=== PATIENT | male | born 1975 | race Caucasian/White ===

== ENCOUNTER 2025-05-13 10:18 | Inpatient (IN) ==
--- NOTE | 2025-05-13 11:01 | Emergency Department Note ---
Impression & Plan Alcoholic intoxication, Transaminitis ED Provider Note HISTORY OF PRESENT ILLNESS: Patient is a 49-year-old male presenting requesting alcohol detox. Patient reports he drinks 25, 12 ounce beers a day for the last 30 years. He reports that the longest time he was sober was for 49 days 5 years ago while he was in senior living. He reports that he was given oral medications for the first 3 days during his incarceration. He reports that he drinks 2 beers every morning before even gets up to brush his teeth. He states that he gets very tremulous and shaky if he does not have alcohol regularly. He denies any known seizure history with alcohol cessation. He denies any visual hallucinations at this time. He did drink 8 beers in the parking lot. ROS: as above PHYSICAL EXAM: Constitutional: Patient appears in no acute distress. Slurring his speech and clinically intoxicated. HENT: Head: Normocephalic and atraumatic. Eyes: EOMI, PERRL Mouth/Throat: Mucous membranes moist. Neck: Trachea midline. Neck supple. Cardiovascular: RRR, No murmurs, rubs or gallops. Intact distal pulses. Pulmonary/Chest: No respiratory distress. Breath sounds clear and equal bilaterally. No wheezes or rales. Abdominal: Abdomen soft, no tenderness, rebound or guarding. Musculoskeletal: No edema, tenderness or deformity noted. Skin: Warm and dry. No rash, erythema, pallor or cyanosis Psychiatric: Appropriate mood and affect for situation. Neurological: Alert and keenly responsive. CN II-XII grossly intact, moving all extremities equally and fully. MDM: - Vitals signs showed hypertension - History obtained via patient. History as above. - Chronic conditions affecting care: Alcohol abuse - Differential diagnoses include, but are not limited to: Alcohol intoxication; drug intoxication; dehydration; electrolyte abnormality - Order placed for continuous cardiac monitoring. At this time, monitor showed rate of 82 bpm with normal sinus rhythm, per my interpretation. - External medical records reviewed. - EKG image interpreted by myself showed normal sinus rhythm. Rate 78 bpm. QT 366. No acute ischemic changes - Laboratory workup interpreted by myself showed normal WBC; stable electrolytes; elevated glucose (158) with normal anion gap; transaminitis (AST 190; ALT 165); normal lipase; elevated alcohol (264.8) - Alcohol withdrawal severity score was only 2 on arrival to the ER, but patient is clinically intoxicated. He has never had outpatient sobriety before. Concerned about the patient's alcohol intake and need for medical alcohol detox. - Discussion was had with rehabilitation case coordinator about patient's case and need for admission - Hospitalist, Dr. Manning, consulted for admission - [facility] ASSESSMENT AND PLAN: Diagnosis: Alcohol intoxication; alcohol detox; transaminitis Plan: Admit Past Med/Surg History Problem List (Updated 05/13/25 @ 13:08 by Gloria Vega MD) Transaminitis (Acute) Alcoholic intoxication (Acute) Social History Smoking Status: Current every day smoker Tobacco Type: Smokeless Tobacco (Dip or Chew) Hx Substance Use: Yes (all different- clean 7 yrs) Preferred Language: Greenlandic Feels Safe at Home: Yes Results & Data (ED) Vital Signs Vital Signs - 24 hr 05/13/25 10:23 05/13/25 10:38 05/13/25 10:38 Temperature 36.8 C Temperature Source Temporal Artery Scan Pulse Rate 95 H Pulse Rate [Finger] 83 Pulse Rhythm [Finger] Regular Pulse Strength [Finger] Normal Respiratory Rate 18 18 Respiratory Effort / Characteristics Spontaneous Non-Labored Respiratory Depth Normal Normal Respiratory Pattern Regular Regular Blood Pressure 166/107 H Blood Pressure [Left Arm] 162/110 H Blood Pressure Mean 126 Blood Pressure Mean [Left Arm] 127 Pulse Oximetry 97 97 Oxygen Delivery Method Room Air Room Air Room Air Sepsis Recent Fever Within 48 Hours No Sepsis New/Unexplained Change in Mental Status No Sepsis Action Taken by Nursing No Action Required 05/13/25 10:38 05/13/25 11:14 Temperature Temperature Source Pulse Rate 82 Pulse Rate [Finger] Pulse Rhythm [Finger] Pulse Strength [Finger] Respiratory Rate Respiratory Effort / Characteristics Respiratory Depth Respiratory Pattern Blood Pressure Blood Pressure [Left Arm] Blood Pressure Mean Blood Pressure Mean [Left Arm] Pulse Oximetry 98 Oxygen Delivery Method Room Air Sepsis Recent Fever Within 48 Hours Sepsis New/Unexplained Change in Mental Status Sepsis Action Taken by Nursing Laboratory Data 05/13/25 10:52 05/13/25 10:52 Lab Results 05/13/25 05/13/25 Range/Units 10:52 11:26 WBC 6.15 (4.8-10.8) K/ul RBC 4.43 L (4.70-6.10) M/uL Hgb 14.4 (14.0-18.0) g/dl Hct 41.1 L (42.0-52.0) % MCV 92.8 (80.0-100.0) fL MCH 32.5 (25.0-34.0) pg MCHC 35.0 (32.0-36.0) g/dL RDW Std Deviation 46.9 H (36.4-46.3) fL RDW Coeff of María 13.7 (11.5-14.5) % Plt Count 161 (130-400) K/uL MPV 8.9 L (9.4-12.4) fL Immature Gran % (Auto) 1.1 % Neut % (Auto) 47.0 % Lymph % (Auto) 34.8 % Stearns % (Auto) 13.8 % Eos % (Auto) 1.5 % Baso % (Auto) 1.8 % Neut # (Auto) 2.89 (1.40-6.50) K/uL Lymph # (Auto) 2.14 (1.20-3.40) K/uL Stearns # (Auto) 0.85 H (0.11-0.59) K/uL Eos # (Auto) 0.09 (0.00-0.50) K/uL Baso # (Auto) 0.11 (0.00-0.20) K/uL Immature Gran # (Auto) 0.07 (0.01-0.20) K/uL Sodium 137 (136-145) mmol/L Potassium 3.6 (3.5-5.1) mmol/L Chloride 103 (98-107) mmol/L Carbon Dioxide 25 (21-32) mmol/L Anion Gap 9 (3-11) BUN 6 (6-23) mg/dl Creatinine 0.81 (0.6-1.4) mg/dl Est Cr Clr Drug Dosing 134.7 ml/min eGFR 109.44 BUN/Creatinine Ratio 7.4 L (10-20) Glucose 158 H (70-99(Fasting)) mg/dl Calcium 9.0 (8.6-10.3) mg/dl Magnesium 2.1 (1.7-2.4) mg/dl Total Bilirubin 0.9 (0.2-1.0) mg/dl AST 190 H (13-39) U/L ALT 165 H (7-52) U/L Alkaline Phosphatase 46 (34-104) U/L Total Protein 7.7 (6.0-8.3) gm/dl Albumin 4.9 (3.4-5.0) gm/dl Globulin 2.8 (2.5-4.0) gm/dl Albumin/Globulin Ratio 1.8 (0.9-2) Lipase 43 (11-82) U/L Ethyl Alcohol mg/dL 264.8 H (<10.0) mg/dl Imaging Data Radiologist's Impression: Chest X-Ray 05/13/25 10:30 XR chest 1V portable CLINICAL HISTORY: Chest pain, nonspecific COMPARISON STUDY: None FINDINGS: Heart size and pulmonary vasculature are normal. No consolidation or pleural effusion. No pneumothorax. There is a 3 cm oval increased density finding overlying the upper body of the right scapula. IMPRESSION: 1. No acute findings. 2. Finding overlying the right scapula could represent low-grade chondroid lesion at the scapula or overlying soft tissue calcification. ACT 112: Negative or not required by law. Electronically signed by: Jeremy Phillip M.D. 05/13/2025 11:03 AM Discharge Plan Visit Data Chief Complaint: Detox Request Stated Complaint: ALCOHOL PROBLEM,SHAKY,ANXIETY ED Provider: Gloria Vega Discharge Problem: Alcoholic intoxication, Transaminitis Condition: Fair Forms Stand Alone Forms: [facility], Suicide Prevention Resources Referrals Referrals: PCP,NO [Primary Care Provider] -
--- NOTE | 2025-05-13 11:04 | XRay Report ---
XR chest 1V portable CLINICAL HISTORY: Chest pain, nonspecific COMPARISON STUDY: None FINDINGS: Heart size and pulmonary vasculature are normal. No consolidation or pleural effusion. No p neumothorax. There is a 3 cm oval increased density finding overlying the upper body of the right sca pula. IMPRESSION: 1. No acute findings. 2. Finding overlying the right scapula could represent low-grade chondroid lesion at the scapula or o verlying soft tissue calcification. ACT 112: Negative or not required by law. Electronically signed by: Jeremy Phillip M.D. 05/13/2025 11:03 AM
[2025-05-13 11:20] LABS: Basophils # (auto) 0.11 K/uL (0.00-0.20); Basophils % (auto) 1.8 %; Eosinophils # (auto) 0.09 K/uL (0.00-0.50); Eosinophils % (auto) 1.5 %; Hematocrit (blood only) 41.1 % (42.0-52.0); Hemoglobin 14.4 g/dl (14.0-18.0); Immature Granulocytes # (auto) 0.07 K/uL (0.01-0.20); Immature Granulocytes % (auto) 1.1 %; Lymphocytes # (auto) 2.14 K/uL (1.20-3.40); Lymphocytes % (auto) 34.8 %; Mean Corpuscular Hemoglobin 32.5 pg (25.0-34.0); Mean Corpuscular Volume 92.8 fL (80.0-100.0); Mean Platelet Volume 8.9 fL (9.4-12.4); Monocytes # (auto) 0.85 K/uL (0.11-0.59); Monocytes % (auto) 13.8 %; Neutrophils # (auto) 2.89 K/uL (1.40-6.50); Platelet Count 161 K/uL (130-400); RDW Coefficient of Variation 13.7 % (11.5-14.5); RDW Standard Deviation 46.9 fL (36.4-46.3); Red Blood Count 4.43 M/uL (4.70-6.10); White Blood Count 6.15 K/ul (4.8-10.8)
[2025-05-13 11:46] LABS: Albumin Globulin Ratio 1.8 (0.9-2); Albumin Level 4.9 gm/dl (3.4-5.0); BUN Creatinine Ratio 7.4 (10-20); Bilirubin,Total 0.9 mg/dl (0.2-1.0); Creatinine Clr Calc Pharmacy 134.7 ml/min; Globulin 2.8 gm/dl (2.5-4.0); Magnesium 2.1 mg/dl (1.7-2.4); Potassium 3.6 mmol/L (3.5-5.1); Total Protein 7.7 gm/dl (6.0-8.3)
--- NOTE | 2025-05-13 14:49 | History & Physical Report ---
Date of Service May 13, 2025 Assessment & Plan (1) Alcoholic intoxication: Plan: West is a 49-year-old male with past history of polysubstance use with recreational drug use and remission for 7 years but with ongoing daily alcohol use of 25+ drinks per day last drink 8 drinks morning of admission who presents resting detox. He is high risk for severe withdrawal and had 1 past episode of withdrawal symptoms treated while in long term, unclear what medication regimen he was treated with. Alcohol abuse, risk of severe alcohol withdrawal Drinking 25 beers per day. No alcohol free periods in the last 5 years History of prior withdrawal without seizures/DTs PAWSS screening score 5 - Slight alcohol induced transaminitis without hyperbilirubinemia, evidence of cirrhosis, or history of synthetic dysfunction. Alcohol initially to 264.8 on arrival to the ER. On reassessment for admission patient is beginning to be shaky and tremulous, rising heart rate in the 8090s previously in the 60s. ETOH downtrending not yet normal No dyspnea/airway obstruction. No evidence of Wernicke's. No encephalopathy on reassessment. Given that he has very daily use, showing withdrawal symptoms from an ETOH delta from 264 --> 176 and endorses shakes/tremors symptoms requiring him to take his morning drinks, and increased PAWS score he is high risk of severe withdrawal. Started on phenobarbital Phenobarbital Symptom-Triggered Management: -Meeker body weight: 84 kg. Patient is 6 feet 3 inches. Actual body weight 98.8 kg. Phenobarbital total load 12 mg/kg given as 40% dose followed by 30% after 3 hours, followed by 30% after 3 hours. Total load= 1008mg - First dose 403mg, to be given as IV infusion.due to worsening symptoms on reevaluation. - Second dose 260mg IM (302mg rounded down to nearest 65mg IM) - Third 260mg IM (302mg rounded down to nearest 65mg IM) Phenobarbital 65 mg IM/PO every hour as needed up to 6 maximum doses after completion of load. Note if all doses are given this is cumulatively at approximately 20 mg/kg total dose soft stop, and still significantly below 30 mg/kg maximum dosing. Phenobarbital as needed dosing. RASS parameters added. May give PRN dose for RASS >0, hold doses and notify provider if RASS <-2. Goal 0 to -1. Reassess RASS every 15 minutes until goal -1 to 0 achieved. Then reassess every 30 minutes x 2, every hour x 2, every 2 hours x 2 q., then every 4 hours - No evidence of Wernicke's. Moderate-High risk of nutritional deficiency. Will treat with thiamine 500 mg x 1, then 100 mg 3 times daily x 1 day, then 100 mg daily. Continue folic acid If doing well afterload and initial PRNs complete transition to oral taper as follows: Phenobarbital 60 mg twice daily x 2 days, then phenobarbital p.o. 30 mg twice daily x 2 days, then phenobarbital 15 mg twice daily x 2 days, then phenobarbital 7.5 mg p.o. twice daily for 1 day, then stop taper. If symptoms have completely resolved at any point discontinue taper. Hold if SBP less than 90, DBP less than 50, heart rate less than 50, RR less than 10, or RASS less than -2 Case management consulted to help provide cessation resources and referrals as patient is interested in programs to help maintain sobriety. On subsequent evaluation patient has improvement in heart rate, reports he feels better and does not feel anxious or tremulous like he did earlier and like he normally would without withdrawal. Breathing comfortably.. RASS of 0. Transaminitis Mild, suspect acute alcohol use hepatitis CMP trended Liver ultrasound pending No clinical signs or symptoms of cholecystitis. Bilirubin is not elevated. Lipid panel, A1c pending. Patient reports he had a history of fatty liver disease separate from his alcohol use, but does not sure of details of this and was discussed several years ago GERD Continue PPI DVT prophylaxis: SCDs Diet: Regular Disposition: PCU CODE STATUS: Full code. Jayne Burrell is girlfriend [phone] would be his surrogate DM. (2) Alcohol withdrawal: (3) Transaminitis: History of Present Illness Primary Care Provider: NO PCP Sarthak is a 49-year-old male who presents with a 25+ year intake per day requesting detoxification. 25beer per day. Last time he went without etoh for more than 3-4 days was 5 years ago when in [facility]. He reports that he did have withdrawal symptoms at that time but was treated with a oral medication, he does not recall the name of this. He did not have any seizures or hallucinations at the time Drinks beer on the way to work as he feels poorly in the morning "If I drink too much I feel terrible, if I dont drink I feel terrible. I used to be in control, now it's in control" Would like to detox and stay soberIs interesting in counseling and medcally assisted sobriety ([facility]) although notes this worked poorly when he last used is several years ago Reassessment he feels he is starting to feel very tremulous, sweaty, and a li ttle bit anxious which is normally how he feels in the morning when waking up until he takes a few drinks prior to going to work. Denies history of bleeding/DVT PAWSS Screening: Endorses intoxication in the previous month. +Withdrawal while in long term in the past. No seizures, no DTs. Interested in formal rehabilitation treatment, previously had only been sober during a period of incarceration. Episodes of blackouts in the past. Denies combining alcohol with any other substances in the preceding 90 days. No history of seizures, no DTs Had an episode of jaundice from acute alcohol approximately 5 years ago which resolved History of fatty liver. Denies cirrhosis. Denies leg swelling/abdominal swelling. Denies easy bruising or bleeding Last drink was ~10am this morning. Had approximately 8 drinks this morning history of asthma and GERD. Denies other medication history Reports "if you name it I tried it, but have not used anything in 7 years ". he denies IV drug use however subsequently clarifies that he did not IV drugs about 8 times total in the past does not like needles and use drugs orally/nasally instead. Thinks he was hepatitis negative at 1 point. Denies any recreational drug use in the last 7 years. He had an episode where he [place] then stopped using illicit drugs at that time however continued to use alcohol Medical History: Reviewed Medications: Reviewed Surgical History: Reviewed Family history: Reviewed Allergies: Reviewed Social History: Alcohol use, drug use is no CODE STATUS: Full. aJyne Burrell is girlfriend [phone] would be his surrogate DM. Allergies Allergy/AdvReac Type Severity Reaction Status Date / Time No Known Allergies Allergy Unverified 05/13/25 15:16 Home Medications Medication Instructions Recorded Confirmed Type pantoprazole 40 mg tablet,delayed 40 mg PO DAILY PRN Heartburn 05/13/25 05/13/25 History release Past Med/Surg History Problem List Alcohol withdrawal Transaminitis (Acute) Alcoholic intoxication (Acute) Social History Smoking Status: Current every day smoker Tobacco Type: Smokeless Tobacco (Dip or Chew) Hx Alcohol Use: Yes Alcohol type: beer Hx Substance Use: Yes (all different- clean 7 yrs) Preferred Language: Bengali Communication Ability: Effective Single Pointed Operator Required: No Beliefs That Will Affect Care: None Current Living Situation: Significant Other Feels Safe at Home: Yes Safety Concerns: Feels Safe At This Time Assistive Devices: None Physical Exam Physical Exam: General: A&Ox3. Skin warm, slightly moist. Speech fluent. No confabulation. HEENT: Atraumatic, normocephalic. Vision and hearing grossly intact. EOM intact without nystagmus. Pulm: CTAB A&P. -wheezes, -rales, -rhonchi. Symmetrical chest rise. No increased work of breathing. No respiratory distress. Cardiac: RRR, -mrg. Pulse initially 6070s. On bedside recheck 85-96 while resting. Radial pulses intact and symmetrical. Abdominal: Nontender, nondistended, soft. BS present. Remedies: Warm and dry. Lower extremities with resting tremor. Sensation to soft touch intact in hands and feet without deficit or asymmetry. Security Threat Analyst strength, hip flexion, ankle dorsiflexion/plantarflexion 5/5 Results & Data Results & Data Vital Signs (Past 12 Hours) Vital Signs Temp Pulse Pulse Resp BP BP Pulse Ox 05/13/25 13:10 80 16 142/93 H 98 05/13/25 11:14 82 05/13/25 10:38 98 05/13/25 10:38 83 18 162/110 H 97 05/13/25 10:38 05/13/25 10:23 36.8 C 95 H 18 166/107 H 97 O2 Del Method 05/13/25 13:10 Room Air 05/13/25 11:14 05/13/25 10:38 Room Air 05/13/25 10:38 Room Air 05/13/25 10:38 Room Air 05/13/25 10:23 Room Air PG Care Time/CCT Total # of Minutes Spent Total Time Spent with Patient: Total time spent is greater than 50% in coordination of care (as documented) at patient's floor/unit and/or counseling patient: Coding Level of Care Code 66888 INT INP/OBS CARE MIN Diagnoses Alcoholic intoxication F10.929 Alcohol withdrawal F10.939 Transaminitis R74.01
[2025-05-13] MEDS ORDERED: PHENobarbital sodium 65 MG/ML VIAL IV STA (15:11)
[2025-05-13] MEDS: THIAMINE HCL 500 MG in SODIUM CHLORIDE 0.9% 50 ML IV ONE (16:00)
--- NOTE | 2025-05-13 17:19 | Ultrasound Report ---
EXAMINATION: US abdomen right upper quadrant COMPARISON: None HISTORY: Abnormal LFTs TECHNIQUE: The right upper quadrant of the abdomen was scanned in standard fashion with specialized ultrasound transducers using both burnett scale and limited color Doppler techniques. Findings: Liver: The liver demonstrates diffusely increased echogenicity with poor acoustic penetration. No evidence of a focal hepatic mass or intrahepatic biliary ductal dilatation. The main portal vein is patent with antegrade flow. The liver measures 16.8 cm. Gallbladder: The gallbladder is well distended and of normal morphology. There is no wall thickening, pericholecystic fluid, sonographic Mccord's sign nor evidence for cholelithiasis. Bile Ducts: Both the intra- and extrahepatic biliary system are of normal callber. The common bile duct measures 3.6 mm in diameter. Pancreas: Visualized portions of the head and body of the pancreas are unremarkable. Right kidney: Normal echotexture, without mass or hydronephrosis. Right kidney craniocaudal dimension: 10.7 Fluid: No evidence of ascites or pleural effusions. Impression: 1. Increased echogenicity of the liver suggesting hepatic steatosis Electronically signed by Db Moran 05-13-2025 5:19 PM
[2025-05-13] MEDS: PHENobarbital sodium 130 MG/ML VIAL IM SCH (19:52)
[2025-05-13] MEDS ORDERED: PHENobarbital sodium 65 MG/ML VIAL IM PRN ×2 (22:00→22:15)
[2025-05-13] MEDS: THIAMINE HCL 100 MG in SYRINGE 9 ML IV SCH (22:03)
[2025-05-14 06:17] LABS: Basophils # (auto) 0.09 K/uL (0.00-0.20); Basophils % (auto) 1.4 %; Eosinophils # (auto) 0.15 K/uL (0.00-0.50); Eosinophils % (auto) 2.3 %; Hematocrit (blood only) 40.1 % (42.0-52.0); Hemoglobin 14.1 g/dl (14.0-18.0); Immature Granulocytes # (auto) 0.03 K/uL (0.01-0.20); Immature Granulocytes % (auto) 0.5 %; Lymphocytes # (auto) 1.65 K/uL (1.20-3.40); Lymphocytes % (auto) 25.5 %; Mean Corpuscular Hemoglobin 32.4 pg (25.0-34.0); Mean Corpuscular Hgb Conc 35.2 g/dL (32.0-36.0); Mean Corpuscular Volume 92.2 fL (80.0-100.0); Mean Platelet Volume 9.4 fL (9.4-12.4); Monocytes # (auto) 0.95 K/uL (0.11-0.59); Monocytes % (auto) 14.7 %; Neutrophils % (auto) 55.6 %; Platelet Count 154 K/uL (130-400); RDW Coefficient of Variation 13.4 % (11.5-14.5); RDW Standard Deviation 46.1 fL (36.4-46.3); Red Blood Count 4.35 M/uL (4.70-6.10); White Blood Count 6.47 K/ul (4.8-10.8)
[2025-05-14 06:42] LABS: Albumin Globulin Ratio 1.8 (0.9-2); Albumin Level 4.3 gm/dl (3.4-5.0); BUN Creatinine Ratio 8.6 (10-20); Bilirubin,Total 1.5 mg/dl (0.2-1.0); Calcium 8.7 mg/dl (8.6-10.3); Chol HDL Ratio 3.2 (0-5); Creatinine Clr Calc Pharmacy 134.7 ml/min; Globulin 2.4 gm/dl (2.5-4.0); Potassium 3.7 mmol/L (3.5-5.1); Total Protein 6.7 gm/dl (6.0-8.3)
[2025-05-14 06:43] LABS: INR 1.1 (0.9-1.1); Prothrombin Time 11.5 Seconds (9.0-12.0)
[2025-05-14] MEDS ORDERED: PHENobarbitaL 30 MG TAB PO SCH (07:00)
[2025-05-14 07:13] LABS: Estimated Average Glucose 120 mg/dl; Hemoglobin A1C 5.8 % (4.5-5.6)
--- NOTE | 2025-05-14 08:16 | Hospitalist Progress Note ---
Date of Service May 14, 2025 Assessment & Plan (1) Alcoholic intoxication: Plan: 49-year-old male with past history of polysubstance use with recreational drug use and remission for 7 years but with ongoing daily alcohol use of 25+ drinks per day. he presented in alcohol withdrawal requesting detox. He was high risk for severe withdrawal so treated with phenobarbital protocol. He has done very well overnight currently withdrawal is very well-controlled on phenobarbital. Plan to monitor him at least 1 additional night in hospital to make sure withdrawal is not worsening. 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 CBD and GB normal on US Reviewed CBC - unremarkable, electrolytes wnl and Cr 0.8 -Continue oral phenobarbital taper as ordered -monitor CMP, magnesium she wishes to quit drinking alcohol, he plans to attend AA meetings, discussed option of oral or IM naltrexone, sounds like he had IM naltrexone in the past and Drinking on top of it however. consulted care coordination for quit resources - No evidence of Wernicke's. Moderate-High risk of nutritional deficiency. Will treat with thiamine 500 mg x 1, then 100 mg 3 times daily x 1 day, then 100 mg daily. Continue folic acid # Prediabetes based on slightly elevated hemoglobin A1c of 5.8% - cessation of excessive beer drinking will significantly help this and may resolve it - counseled patient with respect to diet and exercise # GERD, alcoholic gastritis. No longer vomiting does have some mild epigastric pain Continue PPI DVT prophylaxis: enoxaparin Jayne Burrell is girlfriend [phone] would be his surrogate DM. (2) Alcohol withdrawal: (3) Transaminitis: Admission and Anticipated Discharge Date Admission Date: May 13, 2025 Subjective Malcolm is feeling much much better today, pretty well actually he has been a little bit tangential per nursing but not overtly confused not agitated, no PRNs given this morning Physical Exam 2 Physical Exam: Last 24h vitals reviewed GEN: no acute distress, sitting on edge of bed and walking in room HEENT: pupils equal, sclerae anicteric, moist MM RESP: normal WOB, CTAB CV: reg no mrg ABD: soft/nt/nd +BT : no sidhu SKIN: warm and dry, no generalized rashes NEURO: AOx person, place, and situation. Face symmetric, speech normal, moves 4 ext spontaneously and equally. skin is dry not tremulous Results & Data Results & Data Vital Signs (Past 12 Hours) Vital Signs Temp Pulse Pulse Resp BP BP Pulse Ox 05/14/25 08:06 36.7 C 88 18 134/85 94 05/14/25 03:53 36.7 C 77 18 132/79 95 05/13/25 22:03 93 H 18 137/99 O2 Del Method 05/14/25 08:06 Room Air 05/14/25 03:53 Room Air 05/13/25 22:03 Laboratory Results 05/14/25 05:38 05/14/25 05:38 PG Care Time/CCT Total # of Minutes Spent Total Time Spent with Patient: Total time spent is greater than 50% in coordination of care (as documented) at patient's floor/unit and/or counseling patient: Coding Level of Care Code 27042 SUB INP/OBS CARE 3/50MIN Diagnoses Alcoholic intoxication F10.929 Alcohol withdrawal F10.939 Transaminitis R74.01
[2025-05-14] MEDS: PHENobarbitaL 30 MG TAB PO SCH (10:02)
[2025-05-14] MEDS: FOLIC ACID 1 MG TAB PO SCH (10:02)
[2025-05-14] MEDS: PANTOprazole 40 MG TAB PO SCH (10:02)
[2025-05-14] MEDS: ENOXAPARIN INJ 40 MG/0.4 ML SYR SQ SCH (10:03)
--- NOTE | 2025-05-14 16:24 | Electrocardiogram Report ---
Test Reason : Blood Pressure : */* mmHG Vent. Rate : 78 BPM Atrial Rate : 78 BPM P-R Int : 164 ms QRS Dur : 84 ms QT Int : 366 ms P-R-T Axes : 64 19 46 degrees QTcB Int : 417 ms Normal sinus rhythm Normal ECG No previous ECGs available Confirmed by Vinicius Motta ([id number]) on 05/14/2025 4:24:12 PM Referred By: Confirmed By: Vinicius Motta
[2025-05-14] MEDS: LOPERAMIDE HCL 2 MG CAP PO PRN (20:52)
[2025-05-15 07:38] VITALS: PULSE 78; RESP 20; TEMP 98.6; O2SAT 95
[2025-05-15 07:57] LABS: Basophils # (auto) 0.08 K/uL (0.00-0.20); Basophils % (auto) 1.3 %; Eosinophils # (auto) 0.15 K/uL (0.00-0.50); Eosinophils % (auto) 2.4 %; Hematocrit (blood only) 40.3 % (42.0-52.0); Hemoglobin 14.2 g/dl (14.0-18.0); Immature Granulocytes # (auto) 0.02 K/uL (0.01-0.20); Immature Granulocytes % (auto) 0.3 %; Lymphocytes % (auto) 28.3 %; Mean Corpuscular Hemoglobin 32.1 pg (25.0-34.0); Mean Corpuscular Hgb Conc 35.2 g/dL (32.0-36.0); Mean Corpuscular Volume 91.2 fL (80.0-100.0); Mean Platelet Volume 9.2 fL (9.4-12.4); Monocytes % (auto) 15.7 %; Neutrophils # (auto) 3.31 K/uL (1.40-6.50); Platelet Count 150 K/uL (130-400); RDW Coefficient of Variation 13.5 % (11.5-14.5); RDW Standard Deviation 45.7 fL (36.4-46.3); Red Blood Count 4.42 M/uL (4.70-6.10); White Blood Count 6.36 K/ul (4.8-10.8)
[2025-05-15] MEDS: THIAMINE HCL 100 MG TAB PO SCH (08:14)
[2025-05-15 08:16] LABS: Albumin Globulin Ratio 1.5 (0.9-2); Albumin Level 4.2 gm/dl (3.4-5.0); BUN Creatinine Ratio 7.6 (10-20); Bilirubin,Total 1.2 mg/dl (0.2-1.0); Calcium 9.1 mg/dl (8.6-10.3); Creatinine Clr Calc Pharmacy 138.2 ml/min; Globulin 2.8 gm/dl (2.5-4.0); Potassium 3.7 mmol/L (3.5-5.1)
[2025-05-15] MEDS: PHENobarbitaL 30 MG TAB PO SCH (08:17)
[2025-05-15 11:37] VITALS: BP 121/88
--- NOTE | 2025-05-15 12:11 | Discharge Summary ---
Discharge Summary Date of Service May 15, 2025 Principal Dx & Hospital Course #1 = Principal Diagnosis (1) Alcohol withdrawal: (2) Alcoholic intoxication: (3) Severe alcohol use disorder: (4) Alcoholic liver disease: Plan 49-year-old male with past history of polysubstance use with recreational drug use and remission for 7 years but with ongoing daily alcohol use of 25+ drinks per day. he presented in alcohol withdrawal requesting detox. He was high risk for severe withdrawal so treated with phenobarbital protocol. #Alcohol withdrawal #Severe alcohol use disorder #Alcoholic liver disease - mild alcoholic hepatitis, steatohepatitis based on liver ultrasound He has done very well since then currently withdrawal is very well-controlled - asymptomatic on oral phenobarbital taper -discharged with brief taper of oral phenobarbital and daily oral naloxone for AUD. Plans to go to AA meetings and also has access to [facility] for addiction treatment -counseled/encouraged alcohol cessation and MAT AST/ALT improved and bilirubin decreased to 1.2 -mild alcoholic hepatitis will resolve with abstinence -alcoholic steatohepatitis may dramatically improve with sustained abstinence - I counseled regarding this Treated with IV thiamine in hospital, no evidence of Wernicke syndrome # Prediabetes based on slightly elevated hemoglobin A1c of 5.8% - cessation of excessive beer drinking will significantly help this and may resolve it - counseled patient with respect to diet and exercise # GERD, alcoholic gastritis. No longer vomiting and no epigastric pain Continue PPI Admission HPI Per Admitting Provider Sarthak is a 49-year-old male who presents with a 25+ year intake per day requesting detoxification. 25beer per day. Last time he went without etoh for more than 3-4 days was 5 years ago when [place] He reports that he did have withdrawal symptoms at that time but was treated with a oral medication, he does not recall the name of this. He did not have any seizures or hallucinations at the time Drinks beer on the way to work as he feels poorly in the morning "If I drink too much I feel terrible, if I dont drink I feel terrible. I used to be in control, now it's in control" Would like to detox and stay soberIs interesting in counseling and medcally assisted sobriety (vivitrol) although notes this worked poorly when he last used is several years ago Reassessment he feels he is starting to feel very tremulous, sweaty, and a little bit anxious which is normally how he feels in the morning when waking up until he takes a few drinks prior to going to work. Denies history of bleeding/DVT PAWSS Screening: Endorses intoxication in the previous month. +Withdrawal while in long term in the past. No seizures, no DTs. Interested in formal rehabilitation treatment, previously had only been sober during a period of incarceration. Episodes of blackouts in the past. Denies combining alcohol with any other substances in the preceding 90 days. No history of seizures, no DTs Had an episode of jaundice from acute alcohol approximately 5 years ago which resolved History of fatty liver. Denies cirrhosis. Denies leg swelling/abdominal swelling. Denies easy bruising or bleeding Last drink was ~10am this morning. Had approximately 8 drinks this morning history of asthma and GERD. Denies other medication history Reports "if you name it I tried it, but have not used anything in 7 years ". he denies IV drug use however subsequently clarifies that he did not IV drugs about 8 times total in the past does not like needles and use drugs orally/nasally instead. Thinks he was hepatitis negative at 1 point. Denies any recreational drug use in the last 7 years. He had an episode where he [place] then stopped using illicit drugs at that time however continued to use alcohol Medical History: Reviewed Medications: Reviewed Surgical History: Reviewed Family history: Reviewed Allergies: Reviewed Social History: Alcohol use, drug use is no CODE STATUS: Full. Jayne Burrell is girlfriend [phone] would be his surrogate DM. Discharge Exam Last 24h vitals reviewed GEN: no acute distress, sitting on edge of bed and walking in room HEENT: pupils equal, sclerae anicteric, moist MM RESP: normal WOB, CTAB CV: reg no mrg ABD: soft/nt/nd +BT : no sidhu SKIN: warm and dry, no generalized rashes NEURO: AOx person, place, and situation. Face symmetric, speech normal, moves 4 ext spontaneously and equally. skin is dry not tremulous Discharge Plan Discharge Items Patient Disposition: Home - Self-Care Reason For Visit: ETOH WITHDRAWAL Discharge Diagnosis: Alcohol withdrawal Condition on Discharge: Good Activity: Resume your previous activity Non-emergency contact: Primary Care Provider Call non-emergency contact if: you have any medication questions and your symptoms worsen Follow-up/Referrals: PCP,NO [Primary Care Provider] - Diet: Regular Addtl Attending Provider Instructions: It's advisable to finish the phenobarbital taper for the alcohol withdrawal, though you may do fine without it I sent a prescription for naltrexone to help curb alcohol cravings Keep taking your pantoprazole daily for two weeks to treat alcohol-related stomach inflammation (gastritis) You had mild alcoholic hepatitis and your liver is full of fat related to drinking too much. Over time this can lead to cirrhosis - permanent scarring, and liver failure. The good news is, if you stop drinking now much of the liver disease may be reversible. We strongly advise following up with the [facility] for alcohol rehab and also attending AA meetings It was a pleasure taking care of you in the hospital, Sapphire De La Torre MD Pending Studies at Discharge: No Stand-Alone Forms: [email or web address], Smoking Cessation Medications and DC Order Prescriptions: New phenobarbital 15 mg Tablet 15 mg PO DIRECTED Qty: 5 0RF Rx Instructions: take 2 tabs tonight then take 1 tab twice a day for three more doses naltrexone 50 mg tablet 50 mg PO DAILY Qty: 30 0RF Continued pantoprazole 40 mg tablet,delayed release (DR/EC) 40 mg PO DAILY PRN (Reason: Heartburn) Discharge Orders: Discharge Order (Routine); Ordered 05/15/25 Ordered By: Sapphire De La Torre Admission Data Admit Date/Time: 05/13/25 16:11 Attending Provider: Sapphire De La Torre Admit Provider: Adebayo Manning Primary Care Provider: PCP,CARLOS Other Providers: Adebayo Manning Other Interventions: Discharge Summary Assessment (RN) Last Done: 05/15/25 11:44 Hospital Stay Data Consultations 05/13/25 12:52 ED Decision to Admit Stat Diagnostic Imagining Performed 05/13/25 16:03 US liver Routine Pending Results Patient Have Any Pending Studies at Discharge: No Discharge Instructions Given to Patient (Per Discharging Provider) It's advisable to finish the phenobarbital taper for the alcohol withdrawal, though you may do fine without it I sent a prescription for naltrexone to help curb alcohol cravings Keep taking your pantoprazole daily for two weeks to treat alcohol-related stomach inflammation (gastritis) You had mild alcoholic hepatitis and your liver is full of fat related to drinking too much. Over time this can lead to cirrhosis - permanent scarring, and liver failure. The good news is, if you stop drinking now much of the liver disease may be reversible. We strongly advise following up with the [facility] clinic for alcohol rehab and also attending AA meetings It was a pleasure taking care of you in the hospital, Sapphire De La Torre MD Total Time Total Time Spent Total Time Spent (In Minutes): <30 Coding Level of Care Code 59699 IN/OBS DISCH 30 MIN/LESS Diagnoses Alcohol withdrawal F10.939 Alcoholic intoxication F10.929 Severe alcohol use disorder F10.20 Alcoholic liver disease K70.9
[2025-05-16] MEDS ORDERED: PHENobarbitaL 15 MG TAB PO SCH (09:00)
[2025-05-17] MEDS ORDERED: PHENobarbitaL 15 MG TAB PO SCH (09:00)
== END 2025-05-15 12:52 | disposition home or self-care (01) | DRG 897 ==
LOC: ED 10:18 → 2E 16:11 → SUATTDRO 16:11 → 2E 18:20 → 3N 05-14 21:31